=== PATIENT | male | born 1970 | race Two or more races ===

== ENCOUNTER 2018-11-09 21:10 | Emergency (ER) | payer OTHER ==
[~2018-11-09] VITALS: Ht 177.8 cm; Wt 80.7 kg
== END 2018-11-09 23:25 | disposition home or self-care (01) ==
LOC: ER 21:10
DX: B34.9 Viral infection, unspecified (principal)

== ENCOUNTER 2021-04-02 07:19 | Emergency (ER) | payer OTHER ==
[~2021-04-02] VITALS: Ht 175.3 cm; Wt 79.4 kg
== END 2021-04-02 10:52 | disposition home or self-care (01) ==
LOC: ER 07:19
DX: M62.838 Other muscle spasm (principal); M54.2 Cervicalgia

== ENCOUNTER 2022-12-25 12:02 | Emergency (ER) | payer OTHER ==
[~2022-12-25] VITALS: Ht 175.3 cm; Wt 80.7 kg
[2022-12-25] MEDS ORDERED: ZYRTEC10 M3 PO (15:06)
[2022-12-25] MEDS ORDERED: BENADRYL25 MG PO (15:06)
== END 2022-12-25 15:39 | disposition home or self-care (01) ==
LOC: ER 12:02
DX: R21 Rash and other nonspecific skin eruption (principal)